=== PATIENT | male | born 1960 | race Caucasian/White ===

== ENCOUNTER 2024-04-27 13:23 | Outpatient (CLI) | payer MEDICARE, SELFPAY ==
--- NOTE | ~2024-04-27 | XR_ITS ---
XR knee LT min 4V 04/27/2024 13:32 Indication: Anterior knee pain for 4 days Procedure: 4 views left knee Comparison: No prior studies for comparison. Findings: There is moderate prepatellar soft tissue swelling. Mild patellofemoral compartment osteoar thritis. No fracture or traumatic malalignment. No significant joint effusion. Impression: 1: Moderate prepatellar soft tissue swelling. Reviewed, dictated and finalized at location B. Impression: 1: Moderate prepatellar soft tissue swelling.
== END 2024-04-27 13:24 ==
PROVIDERS: PCP Internal Medicine; Visit Provider Nurse Practitioner
DX: M79.89 Other specified soft tissue disorders (principal)
CPT/HCPCS: 73564